=== PATIENT | male | born 1990 | race Caucasian/White ===

== ENCOUNTER 2017-07-16 02:02 | Emergency (ER) | payer SELFPAY ==
[~2017-07-16] VITALS: Ht 170.2 cm; Wt 86.0 kg
[2017-07-16 02:04] VITALS: BP 150/81; PULSE 96; RESP 16; TEMP 98.7; O2SAT 96
[2017-07-16] MEDS ORDERED: LIDOCAINE HCL 2% 50 ML VIAL NERV BLOCK ONE (02:45)
[2017-07-16] MEDS ORDERED: TETANUS/DIPHTHERIA TOXOID ADULT 0.5 ML VIAL IM ONE (02:45)
--- NOTE | 2017-07-16 02:56 | PD ---
HPI Chief Complaint: Laceration/Skin Injury Time Seen by Provider: 02:45 Travel History International Travel<30 days: No Contact w/Intl Traveler<30days: No Traveled to known affect area: No History of Present Illness HPI 27-year-old right-hand dominant white male presents emergency department with a laceration to his left ring finger from a piece of broken tile. 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 He has not had a tetanus shot in over 5 years. He denies any numbness or tingling. The wound has been persistently bleeding. No alleviating factors. Exacerbated by movement. PFSH Past Medical History Medical History: Denies Significant Hx Tetanus Vaccination: > 5 Years Influenza Vaccination: No Past Surgical History Surgical History: No Previous Surgery Social History Alcohol Use: Yes (1 beer weekly) Tobacco Use: No Substance Use: No Allergies-Medications (Allergen,Severity, Reaction): Coded Allergies: No Known Drug Allergies (Verified Allergy, Unknown, 07/16/17) Reported Meds & Prescriptions Reported Meds & Active Scripts Active No Active Prescriptions or Reported Medications Review of Systems General / Constitutional: No: Fever Eyes: No: Visual changes HENT: No: Headaches Cardiovascular: No: Chest Pain or Discomfort Respiratory: No: Shortness of Breath Gastrointestinal: No: Abdominal Pain Genitourinary: No: Dysuria Musculoskeletal: No: Pain Skin: No Rash Neurologic: No: Weakness Psychiatric: No: Depression Endocrine: No: Polydipsia Hematologic/Lymphatic: No: Easy Bruising Physical Exam Narrative GENERAL: This is a well-nourished, well-developed patient, in no apparent distress. SKIN: No rashes, ecchymoses or lesions. Warm and dry. HEAD: Atraumatic. Normocephalic. EYES: PERRL, EOMI, no discharge or injection. No scleral icterus. EARS: Clear NOSE: Nasal turbinates appear normal. THROAT: Mucosa pink and moist. Airway patent. NECK: Trachea midline. supple, moves head freely. LUNGS: Clear to auscultation. CV: Regular in rhythm. ABDOMEN: Soft nontender. EXT: No clubbing cyanosis or edema. Patient has a skin avulsion to the ulnar aspect of the ring finger distal phalanx. There is persistent venous bleeding. There is no tendon, or joint injury. There is no suturable laceration. The avulsion measures approximately 3 x 8 millimeters. Data Data Last Documented VS Vital Signs Date Time Temp Pulse Resp B/P (MAP) Pulse Ox O2 Delivery O2 Flow Rate FiO2 07/16/17 02:13 18 07/16/17 02:04 98.7 96 150/81 (104) 96 Orders Orders Tetanus/Diphtheria Tox Adult (Tetanus/Di (07/16/17 02:45) Lidocaine 2% Inj (Xylocaine 2% Inj) (07/16/17 02:45) Ed Discharge Order (07/16/17 02:56) MDM Medical Decision Making Medical Screen Exam Complete: Yes Emergency Medical Condition: Yes Medical Record Reviewed: Yes Differential Diagnosis MDM: High Differential diagnoses: Fracture, sprain, strain, dislocation, contusion, neurovascular injury Narrative Course Patient's tetanus is updated. The wound is hyfrecated. Procedures Procedure Narrative Left ring finger avulsion laceration: The patient was given a digital block with 1% lidocaine and 0.5% Marcaine. After adequate anesthesia the wound is prepped with Hibiclens. The wound irrigated with normal saline. Cauterization with a electrocautery pen. Positive hemostasis. Neosporin dressing applied. Patient tolerated procedure well. No complications. Diagnosis Primary Impression: Left ring finger avulsion laceration Patient Instructions: General Instructions Additional Instructions: Rest. Elevation. Daily wound care with soap, water, Neosporin. Keep your dressing on and clean and dry for the next 2 days then perform local wound care. Tylenol and Advil for pain. Follow-up with a medical doctor in 1 week. Return to the ER if any problems. Med/Other Pt SpecificInfo: Wound Care Scripts No Active Prescriptions or Reported Meds Disposition: 01 DISCHARGE HOME Condition: Stable Jonh Bianchi Jul 16, 2017 02:56
== END 2017-07-16 03:13 | disposition home or self-care (01) ==
LOC: NEPD 02:02
DX: S61.215A Laceration without foreign body of left ring finger without damage to nail, initial encounter (principal); W45.8XXA Other foreign body or object entering through skin, initial encounter; Y93.H3 Activity, building and construction; Z23 Encounter for immunization
CPT/HCPCS: 12001; 90471; 90714